=== PATIENT | female | born 1955 | race African-American/Black ===

== ENCOUNTER 2024-03-08 23:27 | Inpatient (IN) | payer OTHER ==
[~2024-03-08] VITALS: Ht 165.1 cm; Wt 94.6 kg
[2024-03-09 00:46] LABS: Basophils # (auto) 0 10 ^3/uL (0-0.2); Basophils % (auto) 0.5 % (0.0-2.0); Eosinophils # (auto) 0.1 10 ^3/uL (0-0.8); Hematocrit 48.5 % (36.0-46.0); Hemoglobin 16.3 g/dL (12.2-16.2); Lymphocytes # (auto) 1.4 10 ^3/uL (0.4-5.4); Lymphocytes % (auto) 16.1 % (10.0-50.0); Mean Corpuscular Hemoglobin 28.7 pg (28.0-32.0); Mean Corpuscular Hgb Conc. 33.5 g/dL (32.0-36.0); Mean Corpuscular Volume 85.5 fL (80.0-100.0); Monocytes # (auto) 0.4 10 ^3/uL (0-1.3); Monocytes % (auto) 4.3 % (0.0-12.0); Neutrophils # (auto) 6.9 10 ^3/uL (1.6-8.6); Neutrophils % (auto) 78.1 % (37.0-80.0); Nucleated Red Blood Cells % 0.2 %; Platelet Count (auto) 228 10^3/uL (140-450); Red Blood Cells 5.67 10^6/uL (4.0-5.20); Red Cell Distribution Width 13.1 % (11.8-14.3); White Blood Cell 8.9 10^3/uL (4.4-10.8)
[2024-03-09 01:03] LABS: Albumin 4.6 g/dL (3.2-4.8); Alkaline Phosphatase 112 U/L (46-116); Anion Gap 7 (5-15); Aspartate Aminotransferase 9 U/L (13-40); Bilirubin, Total 0.7 mg/dL (0.2-1.0); Blood Urea Nitrogen 6 mg/dL (9-23); Calcium 10.1 mg/dL (8.7-10.4); Carbon Dioxide 26 mmol/L (20-30); Chloride 103 mmol/L (98-107); Glucose 277 mg/dL (74-106); Lipase 32 U/L (12-53); Potassium 3.8 mmol/L (3.5-5.1); Sodium 136 mmol/L (136-145)
[2024-03-09 01:04] LABS: Alanine Aminotransferase 9 U/L (7-40); Total Protein 8.6 g/dL (5.7-8.2)
[2024-03-09] MEDS: ONDANSETRON HCL 4 MG/2 ML VIAL IM ONE (01:14)
[2024-03-09] MEDS: cloNIDine HCL 0.1 MG TAB PO ONE (01:14)
[2024-03-09] MEDS: KETOROLAC TROMETH 60MG/2ML VIAL IM ONE (01:15)
[2024-03-09] MEDS: levoFLOXacin 500MG 100 ML IV ONE (05:38)
[2024-03-09] MEDS: SODIUM CHLORIDE 0.9% 1,000 ML IV ONE (06:49)
[2024-03-09] MEDS: MORPHINE SULFATE 4 MG/ML SYR/VIAL IV ONE (07:00)
[2024-03-09] MEDS: ONDANSETRON HCL 4 MG/2 ML VIAL IV ONE (07:30)
[2024-03-09] MEDS: hydrALAZINE HCL 20 MG/ML VL IV ONE (07:30)
[2024-03-09 07:33] VITALS: PULSE 115; RESP 18; O2SAT 93
[2024-03-09 07:42] LABS: Urine Blood 1+ /uL (Negative); Urine Clarity Clear (Clear); Urine Color Light-Yellow (Yellow); Urine Protein, UAD 2+ (Negative); Urine Specific Gravity 1.036 (1.001-1.035); Urine Urobilinogen Normal (Negative)
[2024-03-09] MEDS ORDERED: ACETAMINOPHEN 325 MG TAB PO PRN (08:15)
[2024-03-09] MEDS ORDERED: NITROGLYCERIN 0.4 MG SL TAB SL PRN (08:15)
[2024-03-09] MEDS ORDERED: DEXTROSE (50%) 50ML SYRG IV PRN (08:15)
[2024-03-09] MEDS ORDERED: DOCUSATE SOD 100 MG CAP PO PRN (08:15)
[2024-03-09 08:22] LABS: COVID19 ANTIGEN SOFIA FIA NEGATIVE (NEGATIVE)
[2024-03-09 08:55] LABS: Basophils # (auto) 0 10 ^3/uL (0-0.2); Basophils % (auto) 0.2 % (0.0-2.0); Eosinophils # (auto) 0 10 ^3/uL (0-0.8); Hematocrit 47.5 % (36.0-46.0); Hemoglobin 15.7 g/dL (12.2-16.2); Lymphocytes % (auto) 9.7 % (10.0-50.0); Mean Corpuscular Hemoglobin 28.2 pg (28.0-32.0); Mean Corpuscular Volume 85.5 fL (80.0-100.0); Monocytes # (auto) 0.4 10 ^3/uL (0-1.3); Neutrophils # (auto) 8.6 10 ^3/uL (1.6-8.6); Neutrophils % (auto) 86.1 % (37.0-80.0); Nucleated Red Blood Cells % 0.1 %; Platelet Count (auto) 211 10^3/uL (140-450); Red Blood Cells 5.56 10^6/uL (4.0-5.20); Red Cell Distribution Width 13.7 % (11.8-14.3)
[2024-03-09 09:03] LABS: Albumin 4.2 g/dL (3.2-4.8); Alkaline Phosphatase 109 U/L (46-116); Anion Gap 6 (5-15); Aspartate Aminotransferase 8 U/L (13-40); BUN/Creatinine Ratio 10.7 (10.0-20.0); Bilirubin, Total 0.7 mg/dL (0.2-1.0); Blood Urea Nitrogen 9 mg/dL (9-23); Calcium 9.9 mg/dL (8.7-10.4); Carbon Dioxide 27 mmol/L (20-30); Chloride 103 mmol/L (98-107); Glucose 315 mg/dL (74-106); Potassium 3.9 mmol/L (3.5-5.1); Sodium 136 mmol/L (136-145); Total Protein 7.8 g/dL (5.7-8.2)
[2024-03-09 09:13] LABS: Alanine Aminotransferase < 9 U/L (7-40)
[2024-03-09] MEDS: levoFLOXacin 500MG 100 ML IV SCH (09:58)
[2024-03-09] MEDS: amLODIPine BESYLATE 5 MG TAB PO SCH (09:59)
[2024-03-09] MEDS: METOPROLOL TARTRATE 25 MG TAB PO SCH (10:01)
[2024-03-09] MEDS: ACCU-CHEK COMFORT CURVE STRIP VI SCH (11:09)
[2024-03-09] MEDS: InsuLIN REG 1unit/0.01ml Soln (100units/ml) SC SCH ×2 (11:09→21:23)
[2024-03-09] MEDS: SODIUM CHLOR 0.9% PF (SALINE LOCK) 10ML VIAL/SYR IV SCH (13:57)
[2024-03-09] MEDS: ONDANSETRON HCL 4 MG/2 ML VIAL IV PRN (14:15)
[2024-03-09] MEDS: MORPHINE SULFATE INJ 2 MG/ml SYRG IV PRN (14:16)
[2024-03-09 17:22] VITALS: BP 111/71; PULSE 104; RESP 17; TEMP 98.2; O2SAT 99
[2024-03-09] MEDS ORDERED: NORPTMEDS CO (17:41)
[2024-03-09 20:00] VITALS: PULSE 111; RESP 18; O2SAT 100
[2024-03-09 21:00] VITALS: BP 100/59; PULSE 109; RESP 20; TEMP 98.6; O2SAT 99
[2024-03-10] VITALS (10 sets, daily range): BP systolic 108–148; BP diastolic 52–79; PULSE 62–100; RESP 15–20; TEMP 98–98.9; O2SAT 93–99
[2024-03-10] MEDS: HYDROcodone-ACET 5/325MG TAB PO PRN (05:28)
[2024-03-10 07:42] LABS: Basophils # (auto) 0 10 ^3/uL (0-0.2); Basophils % (auto) 0.5 % (0.0-2.0); Eosinophils # (auto) 0 10 ^3/uL (0-0.8); Lymphocytes # (auto) 1.6 10 ^3/uL (0.4-5.4); Mean Corpuscular Hemoglobin 28.9 pg (28.0-32.0); Mean Corpuscular Hgb Conc. 33.4 g/dL (32.0-36.0); Mean Corpuscular Volume 86.6 fL (80.0-100.0); Monocytes # (auto) 0.8 10 ^3/uL (0-1.3); Monocytes % (auto) 7.4 % (0.0-12.0); Neutrophils % (auto) 77.1 % (37.0-80.0); Nucleated Red Blood Cells % 0.1 %; Platelet Count (auto) 232 10^3/uL (140-450); Red Cell Distribution Width 13.7 % (11.8-14.3); White Blood Cell 10.4 10^3/uL (4.4-10.8)
[2024-03-10 08:05] LABS: Alanine Aminotransferase 10 U/L (7-40); Albumin 3.8 g/dL (3.2-4.8); Alkaline Phosphatase 92 U/L (46-116); Anion Gap 5 (5-15); Aspartate Aminotransferase 17 U/L (13-40); BUN/Creatinine Ratio 23.4 (10.0-20.0); Blood Urea Nitrogen 18 mg/dL (9-23); Calcium 9.6 mg/dL (8.7-10.4); Carbon Dioxide 27 mmol/L (20-30); Chloride 104 mmol/L (98-107); Glucose 182 mg/dL (74-106); Potassium 3.7 mmol/L (3.5-5.1); Sodium 136 mmol/L (136-145)
[2024-03-10 08:06] LABS: Bilirubin, Total 0.7 mg/dL (0.2-1.0); Total Protein 7.2 g/dL (5.7-8.2)
[2024-03-10 10:55] LABS: Hepatitis B Surface Antigen Negative (Negative)
[2024-03-10 11:16] LABS: Hepatitis C Antibody Negative (Negative)
[2024-03-10] MEDS ORDERED: DEXTROSE (50%) 50ML SYRG IV PRN (12:30)
[2024-03-10] MEDS: INSULIN LANTUS (GLARGINE) 1 /0.01ml (100units/ml) SC SCH (12:33)
[2024-03-10] MEDS: PIPERACILLIN-TAZOB 3.375GM 100 ML IV ONE (13:13)
[2024-03-10] MEDS: PANTOPRAZOLE 40 MG/10 ML VIAL INJ IV ONE (13:13)
[2024-03-10] MEDS: SODIUM CHLORIDE 0.9% 1,000 ML IV SCH (13:17)
[2024-03-10] MEDS: PIPERACILLIN-TAZOB 3.375GM 100 ML IV SCH (14:12)
[2024-03-10] MEDS: InsuLIN REG 1unit/0.01ml Soln (100units/ml) SC SCH (17:00)
[2024-03-10] MEDS: ACCU-CHEK COMFORT CURVE STRIP VI SCH (17:00)
[2024-03-11] VITALS (8 sets, daily range): BP systolic 117–153; BP diastolic 59–91; PULSE 68–94; RESP 16–20; TEMP 98.1–99.7; O2SAT 93–98
[2024-03-11] MEDS ORDERED: cefTRIAXone 1GM/50ML D5W 50 ML IV SCH (09:00)
[2024-03-11] MEDS: LOSARTAN POTASSIUM 25 MG TAB PO SCH (09:36)
[2024-03-11] MEDS: MORPHINE SULFATE INJ 2 MG/ml SYRG IV PRN (09:38)
[2024-03-11] MEDS: INSULIN LANTUS (GLARGINE) 1 /0.01ml (100units/ml) SC SCH (09:50)
[2024-03-11] MEDS ORDERED: PANTOPRAZOLE 40 MG/10 ML VIAL INJ IV SCH (10:00)
[2024-03-11 10:36] LABS: Basophils # (auto) 0 10 ^3/uL (0-0.2); Basophils % (auto) 0.4 % (0.0-2.0); Eosinophils # (auto) 0 10 ^3/uL (0-0.8); Eosinophils % (auto) 0.1 % (0.0-7.0); Hematocrit 46.7 % (36.0-46.0); Hemoglobin 15.5 g/dL (12.2-16.2); Lymphocytes # (auto) 1.7 10 ^3/uL (0.4-5.4); Lymphocytes % (auto) 18.1 % (10.0-50.0); Mean Corpuscular Hemoglobin 28.5 pg (28.0-32.0); Mean Corpuscular Hgb Conc. 33.2 g/dL (32.0-36.0); Mean Corpuscular Volume 85.9 fL (80.0-100.0); Monocytes # (auto) 0.7 10 ^3/uL (0-1.3); Monocytes % (auto) 7.2 % (0.0-12.0); Neutrophils # (auto) 7.1 10 ^3/uL (1.6-8.6); Neutrophils % (auto) 74.2 % (37.0-80.0); Nucleated Red Blood Cells % 0.1 %; Platelet Count (auto) 267 10^3/uL (140-450); Red Blood Cells 5.44 10^6/uL (4.0-5.20); Red Cell Distribution Width 13.4 % (11.8-14.3); White Blood Cell 9.5 10^3/uL (4.4-10.8)
[2024-03-11 10:44] LABS: Chloride 103 mmol/L (98-107); Potassium 3.4 mmol/L (3.5-5.1); Sodium 136 mmol/L (136-145)
[2024-03-11 10:45] LABS: Anion Gap 7 (5-15); Calcium 9.7 mg/dL (8.7-10.4); Carbon Dioxide 26 mmol/L (20-30)
[2024-03-11 10:50] LABS: BUN/Creatinine Ratio 14.1 (10.0-20.0); Blood Urea Nitrogen 10 mg/dL (9-23); Glucose 179 mg/dL (74-106)
[2024-03-11] MEDS: PANTOPRAZOLE 40 MG TAB PO ONE (11:09)
[2024-03-11] MEDS: DOCUSATE CALCIUM 240 MG CAP PO ONE (13:15)
[2024-03-11] MEDS: amLODIPine BESYLATE 5 MG TAB PO SCH (13:15)
[2024-03-11] MEDS: POTASSIUM EFFERVESENT TAB 25 MEQ GT ONE (15:44)
[2024-03-11] MEDS: PHENAZOPYRIDINE HCL 100 MG TAB PO SCH (16:00)
[2024-03-11] MEDS: LACTULOSE 20Gm/30ML SOLN PO ONE (16:01)
[2024-03-11] MEDS: amLODIPine BESYLATE 5 MG TAB PO ONE (16:04)
[2024-03-11] MEDS: POTASSIUM EFFERVESENT TAB 25 MEQ PO ONE (16:09)
[2024-03-11] MEDS: PHENAZOPYRIDINE HCL 100 MG TAB PO ONE (21:42)
[2024-03-12] VITALS (7 sets, daily range): BP systolic 118–156; BP diastolic 66–92; PULSE 87–100; RESP 16–18; TEMP 97.9–98.8; O2SAT 95–98
[2024-03-12] MEDS: PANTOPRAZOLE 40 MG TAB PO SCH (05:30)
[2024-03-12] MEDS: hydrALAZINE HCL 20 MG/ML VL IV PRN (09:21)
[2024-03-12 11:33] LABS: Basophils # (auto) 0 10 ^3/uL (0-0.2); Basophils % (auto) 0.4 % (0.0-2.0); Eosinophils # (auto) 0 10 ^3/uL (0-0.8); Eosinophils % (auto) 0.2 % (0.0-7.0); Hematocrit 45.9 % (36.0-46.0); Hemoglobin 15.3 g/dL (12.2-16.2); Lymphocytes # (auto) 2.6 10 ^3/uL (0.4-5.4); Lymphocytes % (auto) 29.5 % (10.0-50.0); Mean Corpuscular Hemoglobin 28.4 pg (28.0-32.0); Mean Corpuscular Hgb Conc. 33.4 g/dL (32.0-36.0); Mean Corpuscular Volume 85.3 fL (80.0-100.0); Monocytes # (auto) 0.8 10 ^3/uL (0-1.3); Monocytes % (auto) 8.7 % (0.0-12.0); Neutrophils # (auto) 5.4 10 ^3/uL (1.6-8.6); Neutrophils % (auto) 61.2 % (37.0-80.0); Nucleated Red Blood Cells % 0.2 %; Platelet Count (auto) 267 10^3/uL (140-450); Red Blood Cells 5.38 10^6/uL (4.0-5.20); Red Cell Distribution Width 13.7 % (11.8-14.3); White Blood Cell 8.8 10^3/uL (4.4-10.8)
[2024-03-12 12:05] LABS: Alanine Aminotransferase 15 U/L (7-40); Alkaline Phosphatase 83 U/L (46-116); Anion Gap 8 (5-15); Blood Urea Nitrogen 9 mg/dL (9-23); Calcium 9.3 mg/dL (8.7-10.4); Carbon Dioxide 23 mmol/L (20-30); Chloride 105 mmol/L (98-107); Glucose 147 mg/dL (74-106); Potassium 3.2 mmol/L (3.5-5.1); Sodium 136 mmol/L (136-145)
[2024-03-12 12:07] LABS: Albumin 3.6 g/dL (3.2-4.8); Aspartate Aminotransferase 15 U/L (13-40); Bilirubin, Total 1.4 mg/dL (0.2-1.0); Total Protein 7.1 g/dL (5.7-8.2)
[2024-03-12] MEDS: SODIUM CHLORIDE 0.9% 1,700 ML IV ONE (12:23)
[2024-03-12] MEDS: SODIUM CHLORIDE 0.9% 1,000 ML IV SCH (12:23)
[2024-03-12] MEDS ORDERED: POTASSIUM EFFERVESENT TAB 25 MEQ GT ONE (16:00)
[2024-03-12] MEDS: POTASSIUM CHL 20 Meq TABLET PO ONE (20:28)
[2024-03-13] VITALS (7 sets, daily range): BP systolic 102–143; BP diastolic 60–78; PULSE 66–99; RESP 16–18; TEMP 98.1–98.7; O2SAT 94–97
[2024-03-13 09:21] LABS: Basophils # (auto) 0 10 ^3/uL (0-0.2); Basophils % (auto) 0.5 % (0.0-2.0); Eosinophils # (auto) 0 10 ^3/uL (0-0.8); Eosinophils % (auto) 0.4 % (0.0-7.0); Hematocrit 46.5 % (36.0-46.0); Hemoglobin 15.2 g/dL (12.2-16.2); Lymphocytes # (auto) 1.9 10 ^3/uL (0.4-5.4); Lymphocytes % (auto) 20.5 % (10.0-50.0); Mean Corpuscular Hemoglobin 28.7 pg (28.0-32.0); Mean Corpuscular Hgb Conc. 32.8 g/dL (32.0-36.0); Mean Corpuscular Volume 87.5 fL (80.0-100.0); Monocytes # (auto) 0.8 10 ^3/uL (0-1.3); Monocytes % (auto) 9.2 % (0.0-12.0); Neutrophils # (auto) 6.3 10 ^3/uL (1.6-8.6); Neutrophils % (auto) 69.4 % (37.0-80.0); Nucleated Red Blood Cells % 0.2 %; Platelet Count (auto) 275 10^3/uL (140-450); Red Blood Cells 5.31 10^6/uL (4.0-5.20); Red Cell Distribution Width 14.2 % (11.8-14.3); White Blood Cell 9.1 10^3/uL (4.4-10.8)
[2024-03-13 09:47] LABS: Chloride 105 mmol/L (98-107); Potassium 3.5 mmol/L (3.5-5.1); Sodium 134 mmol/L (136-145)
[2024-03-13 09:48] LABS: Anion Gap 6 (5-15); Carbon Dioxide 23 mmol/L (20-30)
[2024-03-13 09:49] LABS: Calcium 9.3 mg/dL (8.7-10.4)
[2024-03-13 09:53] LABS: Glucose 121 mg/dL (74-106)
[2024-03-13 09:54] LABS: BUN/Creatinine Ratio 10.9 (10.0-20.0); Blood Urea Nitrogen 7 mg/dL (9-23)
[2024-03-13] MEDS: SODIUM CHLORIDE 0.9% 1,000 ML IV SCH (12:00)
[2024-03-13] MEDS: Glucerna Carbsteady SHAKE Stawberry 8oz PO SCH (18:29)
[2024-03-14] VITALS (7 sets, daily range): BP systolic 96–130; BP diastolic 52–78; PULSE 63–89; RESP 16–20; TEMP 98–98.8; O2SAT 93–96
[2024-03-14 12:04] LABS: Basophils # (auto) 0.1 10 ^3/uL (0-0.2); Basophils % (auto) 0.7 % (0.0-2.0); Eosinophils # (auto) 0.1 10 ^3/uL (0-0.8); Hematocrit 41.6 % (36.0-46.0); Hemoglobin 13.9 g/dL (12.2-16.2); Lymphocytes % (auto) 26.1 % (10.0-50.0); Mean Corpuscular Hemoglobin 28.7 pg (28.0-32.0); Mean Corpuscular Hgb Conc. 33.5 g/dL (32.0-36.0); Mean Corpuscular Volume 85.5 fL (80.0-100.0); Monocytes # (auto) 0.7 10 ^3/uL (0-1.3); Monocytes % (auto) 9.5 % (0.0-12.0); Neutrophils # (auto) 4.9 10 ^3/uL (1.6-8.6); Neutrophils % (auto) 62.7 % (37.0-80.0); Nucleated Red Blood Cells % 0.2 %; Platelet Count (auto) 212 10^3/uL (140-450); Red Blood Cells 4.86 10^6/uL (4.0-5.20); Red Cell Distribution Width 13.8 % (11.8-14.3); White Blood Cell 7.7 10^3/uL (4.4-10.8)
[2024-03-14 12:23] LABS: Chloride 105 mmol/L (98-107); Potassium 3.5 mmol/L (3.5-5.1); Sodium 136 mmol/L (136-145)
[2024-03-14 12:24] LABS: Anion Gap 4 (5-15); Calcium 9.4 mg/dL (8.7-10.4); Carbon Dioxide 27 mmol/L (20-30)
[2024-03-14 12:29] LABS: BUN/Creatinine Ratio 17.9 (10.0-20.0); Blood Urea Nitrogen 12 mg/dL (9-23); Glucose 161 mg/dL (74-106)
[2024-03-15 01:00] VITALS: BP 103/53; PULSE 77; RESP 18; TEMP 98.5; O2SAT 95
[2024-03-15 05:00] VITALS: BP 106/58; PULSE 83; RESP 18; TEMP 98.6; O2SAT 96
[2024-03-15 09:00] VITALS: BP 132/55; PULSE 100; RESP 20; TEMP 98.5; O2SAT 97
[2024-03-15 12:06] LABS: Chloride 105 mmol/L (98-107); Potassium 3.8 mmol/L (3.5-5.1); Sodium 135 mmol/L (136-145)
[2024-03-15 12:07] LABS: Anion Gap 4 (5-15); Calcium 9.6 mg/dL (8.7-10.4); Carbon Dioxide 26 mmol/L (20-30)
[2024-03-15 12:12] LABS: BUN/Creatinine Ratio 17.6 (10.0-20.0); Blood Urea Nitrogen 12 mg/dL (9-23); Glucose 207 mg/dL (74-106)
[2024-03-15 13:00] VITALS: BP 137/65; PULSE 90; RESP 18; TEMP 98.2; O2SAT 98
[2024-03-15] MEDS ORDERED: LOS25T PO (16:20)
[2024-03-15] MEDS ORDERED: MET25T PO (16:20)
[2024-03-15] MEDS ORDERED: INSLANTI SC (16:20)
[2024-03-15] MEDS ORDERED: FLUC100T34 PO (16:20)
[2024-03-15] MEDS ORDERED: CEPH250C PO (16:20)
[2024-03-15] MEDS ORDERED: AML5T PO (16:20)
[2024-03-15 17:00] VITALS: BP 143/78; PULSE 94; RESP 20; TEMP 97.9; O2SAT 96
[2024-03-15] MEDS ORDERED: CEPHALEXIN 250 MG CAP PO SCH (22:00)
[2024-03-16] MEDS ORDERED: FLUCONAZOLE 100 MG TAB PO SCH (10:00)
== END 2024-03-15 17:30 | disposition home or self-care (01) | DRG 690 ==
LOC: ER 23:27 → TELE 03-09 08:08 → TELE-WESTW 03-09 19:04 → WEST WING 03-10 14:35 → TELE-WESTW 03-12 10:35 → WEST WING 03-14 23:32
PROVIDERS: ADMIT Internal Medicine; ATTEND Surgery
DX: N30.80 Other cystitis without hematuria (principal); K80.20 Calculus of gallbladder without cholecystitis without obstruction; I16.0 Hypertensive urgency; K59.00 Constipation, unspecified; I10 Essential (primary) hypertension; Z20.822 Contact with and (suspected) exposure to COVID-19; E11.65 Type 2 diabetes mellitus with hyperglycemia; E66.9 Obesity, unspecified; Z79.4 Long term (current) use of insulin; Z85.038 Personal history of other malignant neoplasm of large intestine; Z91.199 Patient's noncompliance with other medical treatment and regimen due to unspecified reason; Z68.34 Body mass index [BMI] 34.0-34.9, adult; Z79.84 Long term (current) use of oral hypoglycemic drugs
CPT/HCPCS: 36415; 70450; 71045; 74176; 76705; 80048; 80053; 81003; 82962; 83036; 83690; 85025; 86803; 87040; 87086; 87088; 87186; 87340; 87426; 96365; 96375; 97110; 97116; 97163; 97530; G0378; J1815; J1885; J1956; J2405; J2470; J2543

== ENCOUNTER 2024-08-03 18:14 | Emergency (ER) | payer OTHER ==
[~2024-08-03] VITALS: Ht 162.6 cm; Wt 90.0 kg
[~2024-08-03 18:14] MED LIST: AML5T PO; CEPH250C PO; FLUC100T34 PO; INSLANTI SC; LOS25T PO; MET25T PO; NORPTMEDS CO
[2024-08-03 18:56] VITALS: PULSE 95; RESP 19; O2SAT 99
[2024-08-03] MEDS: ONDANSETRON HCL 4 MG/2 ML VIAL IV ONE (19:12)
[2024-08-03] MEDS: MORPHINE SULFATE INJ 2 MG/ml SYRG IV ONE ×2 (19:12→21:30)
--- NOTE | 2024-08-03 19:25 | ED.PDOC ---
History of Present Illness HPI Comments 68 y/o F presents with non-radiating, lower abdominal pain, nausea, vomiting, headache, lightheadedness, and dizziness, intermittently, for the past 3 days, today. Patient endorses on symptoms feeling similar to when she had UTI in the past and describes pain as a 4/10 in severity and cramping in quality that improves with sleep and worsens with movement. Patient denies haivng any chest pain, shortness of breath, blood-streaked stools, urinary symptoms, or other associated symptoms or modifiers at this time. She admits to history of DM, HTN, and HLD but refutes any abdominal surgical history in the past. Chief Complaint: Abdominal Pain Time Seen by MD: 18:40 Primary Care Provider: none Reviewed Notes: Nurses Notes, Medications, Allergies Allergies: Coded Allergies: NO KNOWN ALLERGIES (Unverified , 03/08/24) Home Meds Active Scripts Metoprolol Tartrate (Lopressor) 25 Mg Tb, 25 MG PO BID for 30 Days, #60 TAB Prov:NATALIIA SCHRADER MD 03/15/24 Losartan Potassium (Losartan Potassium) 25 Mg Tab, 12.5 MG PO DAILY for 30 Days, #30 TAB Prov:NATALIIA SCHRADER MD 03/15/24 Insulin Glargine (Lantus) 100 Unit/Ml Inj, 20 UNITS SC DAILY@1000 for 30 Days, #10 INJ Prov:NATALIIA SCHRADER MD 03/15/24 Fluconazole (Fluconazole) 100 Mg Tab, 100 MG PO DAILY for 7 Days, #7 TAB Prov:NATALIIA SCHRADER MD 03/15/24 Cephalexin (KEFLEX CAPSULE) 250 Mg Cp, 500 MG PO BID for 5 Days, #10 CAP Prov:NATALIIA SCHRADER MD 03/15/24 Amlodipine Besylate (NORVASC TABLET) 5 Mg Tb, 10 MG PO DAILY for 30 Days, #30 TAB Prov:NATALIIA SCHRADER MD 03/15/24 Reported Medications No Reported Medication (NO REPORTED MEDICATION) Ea, 0 CO, EA PATIENT HAS NO REPORTED MEDICATIONS 03/09/24 Information Source: Patient Mode of Arrival: Ambulatory Timing: Hours Duration: Since onset Prehospital treatment: None Review of Systems: REVIEW OF SYSTEMS: No fever, no chills, or fatigue HEENT: No sore throat, no earache, no congestion, no neck pain. Cardiac: lightheadedness; No chest pain. No palpitations. Lungs: No shortness of breath, no cough. GI: lower abdominal pain, nausea, and diarrhea; no diarrhea, no constipation : No dysuria, frequency, or urgency. No hematuria. Musculoskeletal: No joint pain , no joint swelling, no extremity edema. Skin: No rash, no itching. Neuro: headache and dizziness; no weakness Vital Signs Vital Signs Date Time Temp Pulse Resp B/P (MAP) Pulse Ox O2 Delivery O2 Flow Rate FiO2 08/04/24 07:21 98.7 87 14 153/77 (102) 99 98.7 08/04/24 00:23 Room Air* 0 21 Physical Exam General: Awake, alert and oriented. No acute distress. Skin: Skin in warm, dry and intact. Appropriate color for ethnicity. Nailbeds pink with no cyanosis. HEENT: The head is normocephalic and atraumatic. Conjunctivae are clear without exudates or hemorrhage. Sclera is non-icteric. EOM are intact. No signs of nystagmus. Eyelids are normal in appearance without swelling or lesions. Oral mucosa is pink and moist Neck: The neck is supple with normal range of motion. No JVD. Cardiac: Heart rate and rhythm are normal. No murmurs, gallops, or rubs are auscultated. Respiratory: No signs of respiratory distress. Lung sounds are clear in all lobes bilaterally without rales, ronchi, or wheezes. Abdominal: Suprapubic abdominal and bilateral CVA tenderness; otherwise abdomen is soft, without distention. Bowel sounds are present and normoactive in all four quadrants. Extremities: Upper and lower extremities are atraumatic in appearance without deformity or edema. Neurological: The patient is awake, alert and oriented to person, place, and time with normal speech. Speech is clear. There is no facial asymmetry. Psychiatric: Appropriate mood and affect. Good judgement and insight. No visual or auditory hallucinations. Past Medical History PAST MEDICAL HISTORY: DM, High Lipids, HTN Surgical History: Denies all surgeries SHIPPING ASSOCIATE History: Denies all SHIPPING ASSOCIATE Hx Family History Family History: Reviewed,noncontributory to illness Social History Smoker: Non-Smoker Alcohol: Denies ETOH Use Drugs: Denies Drug Use Lives In: Home Was a procedure done? Was a procedure done?: No Differential Dx Considerations may include: Differential diagnoses considered include: Abdominal aortic aneurysm, [place], esophageal rupture, intestinal obstruction, mesenteric ischemia, perforated viscus or solid organ rupture, CHF with hepatomegaly, pneumonia, abscess, appendicitis, biliary disease, diverticulitis, gastritis, gastroenteritis, hepatitis, hernia, inflammatory bowel disease, pancreatitis, peptic ulcer disease, urinary tract infection, ureteral colic, constipation, GERD, irritable syndrome, abdominal wall pain, nonspecific abdominal pain, herpes zoster. X-Ray, Labs, Meds, VS Vital Signs Date Time Temp Pulse Resp B/P (MAP) Pulse Ox O2 Delivery O2 Flow Rate FiO2 08/04/24 07:21 98.7 87 14 153/77 (102) 99 98.7 08/04/24 06:59 93 19 154/85 (108) 98 08/04/24 06:36 107 18 112/59 (76) 96 08/04/24 05:53 107 18 112/59 (76) 96 08/04/24 03:52 104 21 146/68 (94) 90 08/04/24 01:52 109 19 138/70 (92) 98 08/04/24 00:23 95 19 99 Room Air* 0 21 08/04/24 00:00 99.3 102 21 150/48 (82) 97 99.3 08/03/24 19:42 97 16 159/85 08/03/24 19:12 94 19 171/87 08/03/24 18:56 95 19 99 Room Air* 0 21 08/03/24 18:55 94 19 171/87 (115) 98 08/03/24 18:22 99.2 96 20 121/73 (89) 98 Lab Test 08/04/24 00:24 08/03/24 22:33 08/03/24 20:28 08/03/24 19:09 Range/Units Influenza Type A Antigen Negative Negative Influenza Type B Antigen Negative Negative SARS-CoV-2 Antigen (Rapid) Negative NEGATIVE Urine Color Yellow Yellow Urine Clarity Clear Clear Urine pH 6.0 5.0-9.0 Urine Specific Elmer > 1.035 H 1.001-1.035 Urine Protein 1+ H Negative Urine Ketones Trace Negative Urine Blood Negative Negative /uL Urine Nitrite Negative Negative Urine Bilirubin Negative Negative Urine Urobilinogen Normal Negative mg/dL Urine Leukocyte Esterase Negative Negative /uL Urine RBC 12 0 - 4 /hpf Urine WBC 17 0 - 5 /hpf Urine Squamous Epithelial Cells Mod <5 /hpf Urine Bacteria Few H None Seen /hpf Urine Mucus Few None Seen Urine Glucose 4+ H Normal mg/dL Sodium Level 136 136-145 mmol/L Potassium Level 3.9 3.5-5.1 mmol/L Chloride Level 102 98-107 mmol/L Carbon Dioxide Level 26 20-31 mmol/L Anion Gap 8 5-15 Blood Urea Nitrogen 27 H 9-23 mg/dL Creatinine 0.77 0.550-1.02 mg/dL Glomerular Filtration Rate Calc 84 >90 mL/min BUN/Creatinine Ratio 35.1 H 10.0-20.0 Serum Glucose 194 H 74-106 mg/dL Calcium Level 10.4 8.7-10.4 mg/dL Magnesium Level 2.5 1.6-2.6 mg/dL Total Bilirubin 0.8 0.2-1.0 mg/dL Aspartate Amino Transferase (AST) 10 L 13-40 U/L Alanine Aminotransferase (ALT) 12 7-40 U/L Alkaline Phosphatase 94 46-116 U/L Total Protein 8.2 5.7-8.2 g/dL Albumin 4.5 3.2-4.8 g/dL Lipase 37 12-53 U/L White Blood Count 11.8 H 4.4-10.8 10^3/uL Red Blood Count 5.88 H 4.0-5.20 10^6/uL Hemoglobin 16.6 H 12.2-16.2 g/dL Hematocrit 51.5 H 36.0-46.0 % Mean Corpuscular Volume 87.6 80.0-100.0 fL Mean Corpuscular Hemoglobin 28.2 28.0-32.0 pg Mean Corpuscular Hemoglobin Concent 32.2 32.0-36.0 g/dL Red Cell Distribution Width 13.9 11.8-14.3 % Platelet Count 288 140-450 10^3/uL Mean Platelet Volume 8.5 6.9-10.8 fL Neutrophils (%) (Auto) 71.4 37.0-80.0 % Lymphocytes (%) (Auto) 19.2 10.0-50.0 % Monocytes (%) (Auto) 9.1 0.0-12.0 % Eosinophils (%) (Auto) 0.0 0.0-7.0 % Basophils (%) (Auto) 0.3 0.0-2.0 % Neutrophils # (Auto) 8.4 1.6-8.6 10 ^3/uL Lymphocytes # (Auto) 2.3 0.4-5.4 10 ^3/uL Monocytes # (Auto) 1.1 0-1.3 10 ^3/uL Eosinophils # (Auto) 0 0-0.8 10 ^3/uL Basophils # (Auto) 0 0-0.2 10 ^3/uL Nucleated Red Blood Cells 0.1 % Lactic Acid Level 1.9 0.4-2.0 mmol/L [place] [id number] Ph: [phone] DIAGNOSTIC IMAGING Diagnostic Imaging Report : [id number] Signed PATIENT: ARIADNE SOUSA ACCT: [id number] UNIT: [id number] : 1955 LOC: ER ROOM / BED: / AGE / SEX: 68 / F ADM STATUS: REG ER SERVICE 34 ORDERING PHYSICIAN: ELY YANEZ MD PROCEDURE(s): ABPLIV - CT AB PEL WITH IV CON ONLY REASON: Abdominal pain ORDER NUMBER(s): [id number], ACCESSION NUMBER(s): [id number] Procedure: CT CT AB PEL WITH IV CON ONLY 08/03/2024 07:54 PM Indication: Abdominal pain Comparison Study: None available at time of dictation. Technique: Axial images were obtained and reformatted in coronal and sagittal planes. All CT scans at this medical facility are performed using dose modulation techniques as appropriate to a performed exam including the following: Automated exposure control was utilized; adjustment of the MA and/or KV according to patient size; and use of iterative reconstruction technique. CT Dose: CTDI volume is 21.86 mGy. Dose-length product is 1192.4 mGy*cm FINDINGS: Lower Chest: Unremarkable. Hepatobiliary: Cholelithiasis with no evidence of cholecystitis. Borderline common bile duct dilatation measuring 6-7 mm. Mild intrahepatic ductal dilatation. Spleen: Unremarkable. Pancreas: Dilated main pancreatic duct measuring 6 mm. Adrenal Glands: Unremarkable. tract: The kidneys are normal in size bilaterally without hydronephrosis or nephrolithiasis. The urinary bladder is unremarkable. GI tract: The stomach is grossly normal in appearance. No evidence of small bowel obstruction. The large bowel is unremarkable. The appendix is normal. Lymphatics: No mesenteric, retroperitoneal or periportal lymphadenopathy. Vasculature: Aorta is normal in caliber. Scattered calcified plaques are noted. Pelvic Organs: Unremarkable Bones/soft tissues: No acute abnormality. Other: None. IMPRESSION: 1. Double duct sign with mildly prominent CBD and main pancreatic duct. A distal obstructing process such as choledocholithiasis or ampullary lesion can not be ruled out. Recommend correlation with bilirubin if indicated further evaluation with MRCP or ERCP. 2. Mild fecal retention. ATED BY: DORIS BREAUX MD DICTATED DATE/TIME: 08/03/242018 SIGNED BY: DORIS BREAUX MD SIGNED DATE/TIME: 08/03/242018 CC: Time of 1ST Reevaluation: 19:10 Reevaluation 1ST: Unchanged Patient Education/Counseling: Diagnosis, Treatment Family Education/Counseling: No Family Present Departure 1 Departure Time of Disposition: 21:55 Impression: Primary Impression: Acute abdominal pain Additional Impression: Hyperglycemia Disposition: 02 SHORT TERM HOSPITAL Condition: Stable Comments 58-year-old female who presents to the emergency department with abdominal pain, nausea, vomiting. CT scan suggestive of possible choledocholithiasis. Common bile duct dilated at 6-7 mm, main pancreatic duct 6 mm. Patient continues to endorse abdominal pain and nausea. Case discussed with Dr. Richardson at [facility] who accepts patient for admission. 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 Richardson Addressed an acute or chronic illness that poses a threat to life or bodily function: Abdominal pain, suspected choledocholithiasis Decision regarding hospitalization or escalation of hospital level of care: Risk and benefits of admission for further treatment of patient's condition was considered. Due to patient's current clinical condition, high risk of decline and poor outcome if discharged and need for further inpatient management and monitoring, patient will be admitted to the hospital. Drug therapy requiring intensive monitoring for toxicity: N/A Parenteral controlled substances: IV morphine Decision regarding elective major surgery with identified patient or procedure risk factors: History of diabetes and hypertension Decision regarding emergency major surgery: N/A Decision not to resuscitate or to de-escalate care because of poor prognosis: N/A Diagnosis or treatment significantly limited by social determinants of health: N/A Critical Care Note Critical Care Time?: No Stability Stability form required: No Heart Score Heart Score: Heart Score Response (Comments) Value History N/A 0 EKG N/A 0 Age N/A 0 Risk Factors N/A 0 Troponin N/A 0 Total 0 I personally scribed for ELY YANEZ MD ([email or web address]) on 08/03/24 at 19:25. Electronically submitted by Alexandre Triplett ([email or web address]). I personally scribed for ELY YANEZ MD ([email or web address]) on 08/03/24 at 21:16. Electronically submitted by Alexandre Triplett ([email or web address]). I personally scribed for ELY YANEZ MD ([email or web address]) on 08/04/24 at 05:35. Electronically submitted by Alexandre Triplett ([email or web address]). ELY YANEZ MD Aug 03, 2024 19:25
[2024-08-03 19:48] LABS: Basophils # (auto) 0 10 ^3/uL (0-0.2); Basophils % (auto) 0.3 % (0.0-2.0); Eosinophils # (auto) 0 10 ^3/uL (0-0.8); Hematocrit 51.5 % (36.0-46.0); Hemoglobin 16.6 g/dL (12.2-16.2); Lymphocytes # (auto) 2.3 10 ^3/uL (0.4-5.4); Lymphocytes % (auto) 19.2 % (10.0-50.0); Mean Corpuscular Hemoglobin 28.2 pg (28.0-32.0); Mean Corpuscular Hgb Conc. 32.2 g/dL (32.0-36.0); Mean Corpuscular Volume 87.6 fL (80.0-100.0); Monocytes # (auto) 1.1 10 ^3/uL (0-1.3); Monocytes % (auto) 9.1 % (0.0-12.0); Neutrophils # (auto) 8.4 10 ^3/uL (1.6-8.6); Neutrophils % (auto) 71.4 % (37.0-80.0); Nucleated Red Blood Cells % 0.1 %; Platelet Count (auto) 288 10^3/uL (140-450); Red Blood Cells 5.88 10^6/uL (4.0-5.20); Red Cell Distribution Width 13.9 % (11.8-14.3); White Blood Cell 11.8 10^3/uL (4.4-10.8)
[2024-08-03] MEDS: IOHEXOL 300 MG/ML 100ML BOTTLE IJ ONE (20:06)
--- NOTE | 2024-08-03 20:22 | DVH ---
Procedure: CT CT AB PEL WITH IV CON ONLY 08/03/2024 07:54 PM Indication: Abdominal pain Comparison Study: None available at time of dictation. Technique: Axial images were obtained and reformatted in coronal and sagittal planes. All CT scans at this medical facility are performed using dose modulation techniques as appropriate t o a performed exam including the following: Automated exposure control was utilized; adjustment of th e MA and/or KV according to patient size; and use of iterative reconstruction technique. CT Dose: CTDI volume is 21.86 mGy. Dose-length product is 1192.4 mGy*cm FINDINGS: Lower Chest: Unremarkable. Hepatobiliary: Cholelithiasis with no evidence of cholecystitis. Borderline common bile duct dilatati on measuring 6-7 mm. Mild intrahepatic ductal dilatation. Spleen: Unremarkable. Pancreas: Dilated main pancreatic duct measuring 6 mm. Adrenal Glands: Unremarkable. tract: The kidneys are normal in size bilaterally without hydronephrosis or nephrolithiasis. The urinary bladder is unremarkable. GI tract: The stomach is grossly normal in appearance. No evidence of small bowel obstruction. The la rge bowel is unremarkable. The appendix is normal. Lymphatics: No mesenteric, retroperitoneal or periportal lymphadenopathy. Vasculature: Aorta is normal in caliber. Scattered calcified plaques are noted. Pelvic Organs: Unremarkable Bones/soft tissues: No acute abnormality. Other: None. IMPRESSION: 1. Double duct sign with mildly prominent CBD and main pancreatic duct. A distal obstructing process such as choledocholithiasis or ampullary lesion can not be ruled out. Recommend correlation with bili sosa if indicated further evaluation with MRCP or ERCP. 2. Mild fecal retention.
[2024-08-03 20:52] LABS: Alanine Aminotransferase 12 U/L (7-40); Albumin 4.5 g/dL (3.2-4.8); Alkaline Phosphatase 94 U/L (46-116); Anion Gap 8 (5-15); Aspartate Aminotransferase 10 U/L (13-40); BUN/Creatinine Ratio 35.1 (10.0-20.0); Bilirubin, Total 0.8 mg/dL (0.2-1.0); Blood Urea Nitrogen 27 mg/dL (9-23); Calcium 10.4 mg/dL (8.7-10.4); Carbon Dioxide 26 mmol/L (20-31); Chloride 102 mmol/L (98-107); Glucose 194 mg/dL (74-106); Magnesium 2.5 mg/dL (1.6-2.6); Potassium 3.9 mmol/L (3.5-5.1); Sodium 136 mmol/L (136-145); Total Protein 8.2 g/dL (5.7-8.2)
[2024-08-03] MEDS: SODIUM CHLORIDE 0.9% 1,000 ML IV ONE (22:34)
[2024-08-03 22:41] LABS: Urine Bacteria FEW /hpf (None Seen); Urine Blood Negative /uL (Negative); Urine Clarity Clear (Clear); Urine Color Yellow (Yellow); Urine Mucus FEW (None Seen); Urine Protein, UAD 1+ (Negative); Urine Squamous Epithelial Cell MOD /hpf (<5); Urine Urobilinogen Normal (Negative); Urine WBC 17 /hpf (0 - 5)
[2024-08-03 22:48] LABS: Urine Specific Gravity > 1.035 (1.001-1.035)
[2024-08-04 00:23] VITALS: PULSE 95; RESP 19; O2SAT 99
[2024-08-04 01:34] LABS: COVID19 ANTIGEN SOFIA FIA NEGATIVE (NEGATIVE); Rapid Influenza A Negative (Negative); Rapid Influenza B Negative (Negative)
[2024-08-04 07:21] VITALS: BP 153/77; PULSE 87; RESP 14; TEMP 98.7; O2SAT 99
== END 2024-08-04 07:50 | disposition short-term general hospital (02) ==
LOC: ER 18:14
DX: R10.30 Lower abdominal pain, unspecified (principal); E11.65 Type 2 diabetes mellitus with hyperglycemia; I10 Essential (primary) hypertension; E78.5 Hyperlipidemia, unspecified; Z20.822 Contact with and (suspected) exposure to COVID-19; Z79.899 Other long term (current) drug therapy
CPT/HCPCS: 36415; 74177; 80053; 81001; 83605; 83690; 83735; 85025; 87426; 87804; 96361; 96374; 96375; 99285; J2270; J2405; J7030; Q9967